=== PATIENT | female | born 2000 | race Caucasian/White ===

== ENCOUNTER → 2020-10-06 | Outpatient (CLI) | payer OTHER ==
--- NOTE | 2020-10-06 15:56 | REP ---
INDICATION: LEFT BREAST/PEA SIZE MASS/12 WKS PREG. Patient reports a palpable lump felt by her a provider. She is sometimes able to feel the lump. COMPARISON: None. TECHNIQUE: Targeted left breast sonography, 2 o'clock position, 4 cm from the nipple. FINDINGS: In the left breast at 2 o'clock, there is a 7 x 6 x 5 mm hypoechoic lesion with internal Doppler flow. Lesion is taller than wide on some images and is not a simple cyst. It has triangular shape in somewhat angular margins. No other sonographic abnormality is seen. IMPRESSION: BI-RADS category 4 suspicious lesion 2 o'clock position left breast. Recommend ultrasound-guided needle biopsy be performed, not to be delayed because of the patient's . A HydroMARK clip can be placed at the time of the ultrasound-guided breast biopsy. This patient's estimated Tyrer-Cuzick lifetime risk assessment for breast cancer is 12.3%. <Electronically signed by Terrence Srivastava > 10/06/20 [id number]
== END ==
LOC: M WHC 13:09
PROVIDERS: ATTEND Advanced Practice Midwife
DX: N63.21 Unspecified lump in the left breast, upper outer quadrant (principal); Z3A.12 12 weeks gestation of pregnancy

== ENCOUNTER → 2020-11-05 | Outpatient (CLI) | payer OTHER ==
[~2020-11-05] MED LIST: PRENTAB9 PO
[2020-11-05 13:51] VITALS: BP 112/66
--- NOTE | 2020-11-05 16:56 | REP ---
INDICATION: LEFT BREAST US GUIDED BX/HYDROMARK CLIP PLACEMENT. COMPARISON: None. TECHNIQUE: The procedure was performed under the direct supervision of Dr. Suarez. The patient has a history of a 7 x 6 x 5 mm hypoechoic lesion in the 2 o'clock position of the left breast seen on a previous ultrasound 10/06/2020. The risks and benefits of the procedure were explained to the patient and informed consent was obtained. The left breast nodule was localized using ultrasound guidance. The skin was prepped and draped in a sterile fashion. 8 mL of 1% Xylocaine was used as a local anesthetic. Using ultrasound guidance a 14-gauge coaxial needle biopsy system was inserted and6 core biopsy samples were obtained. A marker clip (HydroMARK shape 3) was placed at the biopsy site The patient tolerated the procedure well and there were no immediate complications. After the appropriate amount of monitored convalescence, the patient was discharged from the department. EBL: Less than 1 FINDINGS: None IMPRESSION: Ultrasound-guided left breast biopsy with marker clip placement (HydroMARK shape 3) <Electronically signed by Rojas Dubois > 11/05/20 1607 <Electronically signed by Dennys Suarez > 11/05/20 [id number]
== END ==
LOC: M WHCPRO 07:31
PROVIDERS: ATTEND Advanced Practice Midwife
DX: Z34.82 Encounter for supervision of other normal pregnancy, second trimester (principal); Z3A.16 16 weeks gestation of pregnancy; D24.2 Benign neoplasm of left breast

== ENCOUNTER 2021-04-09 12:46 | Inpatient (IN) | payer OTHER ==
[~2021-04-09] VITALS: Ht 160 cm; Wt 66.9 kg
[2021-04-09] VITALS (9 sets, daily range): BP systolic 127–150; BP diastolic 66–89
[2021-04-09] MEDS ORDERED: HOME MED LIST COMPLETE! XX SCH (13:35)
[2021-04-09 14:25] LABS: HEMATOCRIT 36.2 % (36.0-47.0); HEMOGLOBIN 12.3 g/dl (12.0-15.5); MEAN CORPUSCULAR HEMOGLOBIN 30.1 pg (27.0-33.0); MEAN CORPUSCULAR VOLUME 88.7 fl (80.0-96.0); PLATELET COUNT, AUTOMATED 236 10^3/uL (150-450); RED BLOOD COUNT 4.08 10^6/uL (4.00-5.40); WHITE BLOOD COUNT 12.3 10^3/uL (4.0-10.0)
[2021-04-09] MEDS ORDERED: miSOPROStol 50MCG 1/2 TABLET PO ONE ×2 (15:35→20:05)
[2021-04-09] MEDS ORDERED: OXYTOCIN DRIP 30 UNITS in IV 1 EA IV PRN ×4 (15:35)
[2021-04-09] MEDS ORDERED: METHYLERGONOVINE MALEATE 0.2 MG/ML VIAL (J2210) IM PRN (15:35)
[2021-04-09] MEDS ORDERED: LACTATED RINGER'S 1000 ML IV ONE (15:35)
[2021-04-09] MEDS ORDERED: OXYTOCIN INJ 10 UNITS/ML VIAL (J2590) IV PRN (15:35)
[2021-04-09] MEDS ORDERED: OXYTOCIN DRIP 30 UNITS in IV 1 EA IV SCH (23:20)
[2021-04-10] VITALS (53 sets, daily range): BP systolic 102–145; BP diastolic 50–87
[2021-04-10] MEDS: LR 1,000 ML IV SCH ×5 (01:25→23:35)
[2021-04-10] MEDS ORDERED: FENTANYL 2MCG/ML ROPIVACAINE 0.2% IN 0.9% NACL 100ML IVBAG As Ordered ONE (05:51)
[2021-04-10] MEDS ORDERED: EPIDURAL COMMENT XX SCH (06:55)
[2021-04-10] MEDS ORDERED: NALOXONE INJ 0.4MG/1ML VIAL (J2310 PER 1MG) IV PRN (06:55)
[2021-04-10] MEDS ORDERED: REFRIGERATOR IV KEYS XX PRN (06:55)
[2021-04-10] MEDS ORDERED: diphenhydrAMINE 50MG/ML VIAL (J1200) IV PRN (06:55)
[2021-04-10] MEDS ORDERED: ONDANSETRON 4MG/2ML VIAL IV PRN (06:55)
[2021-04-10] MEDS ORDERED: ePHEDrine SULFATE 25 MG/5 ML(5MG/ML) SYRINGE IV PRN (06:55)
[2021-04-10] MEDS ORDERED: LACTATED RINGER'S 1000 ML IV PRN (06:55)
[2021-04-10] MEDS ORDERED: EPIDURAL/PCA KEYS XX PRN (06:55)
[2021-04-10] MEDS: FENTANYL/ROPIVACAINE/NACL BAG 100 ML EPIDURAL SCH ×2 (07:09→16:55)
[2021-04-10 19:39] LABS: CORD GAS ABE A -6.5; CORD GAS HCO3 A 18.9 MEQ/L; CORD GAS O2 SAT A 83.9 %; CORD GAS PCO2 A 37.2 mmHg; CORD GAS PH A 7.323 UNITS; CORD GAS PO2 A 39.7 mmHg; CORD GAS SBC A 18.9 MEQ/L
[2021-04-10 19:44] LABS: CORD GAS ABE V -4.7; CORD GAS O2 SAT V 57.4 %; CORD GAS PCO2 V 41.1 mmHg; CORD GAS PH V 7.326 UNITS; CORD GAS PO2 V 24.2 mmHg; CORD GAS SBC V 19.8 MEQ/L; CORD GAS TCO2 V 22.3 MEQ/L
[2021-04-10] MEDS ORDERED: MEASLES,MUMPS,RUBELLA VACCINE INJ (MMR-II) (90707) SC SCH (20:05)
[2021-04-10] MEDS ORDERED: ACETAMINOPHEN TAB 650MG DOSE (2X325MG) PO PRN (20:05)
[2021-04-10] MEDS ORDERED: DIBUCAINE 1% OINTMENT 30GM TOP PRN (20:05)
[2021-04-10] MEDS ORDERED: DOCUSATE SODIUM 100MG CAPSULE PO PRN (20:05)
[2021-04-10] MEDS ORDERED: METHYLERGONOVINE MALEATE 0.2 MG TAB PO PRN (20:05)
[2021-04-10] MEDS: IBUPROFEN 800 MG TAB PO PRN (21:58)
[2021-04-11 06:00] VITALS: BP 130/74
[2021-04-11] MEDS: IBUPROFEN 800 MG TAB PO PRN (06:05)
[2021-04-11] MEDS: PRENATAL VITAMINS CHEWABLE TABLET PO SCH (08:34)
[2021-04-11 17:57] VITALS: BP 136/79
[2021-04-12] MEDS: IBUPROFEN 800 MG TAB PO PRN (00:54)
[2021-04-12 05:15] VITALS: BP 129/78
[2021-04-12] MEDS ORDERED: COLA100C5 PO (08:33)
[2021-04-12] MEDS ORDERED: IBUP80TA PO (08:33)
[2021-04-12] MEDS ORDERED: PRENCHW PO (08:33)
[2021-04-12] MEDS: PRENATAL VITAMINS CHEWABLE TABLET PO SCH (09:11)
== END 2021-04-12 13:35 | disposition home or self-care (01) | DRG 807 ==
LOC: M LDI 12:46 → M OBS 04-10 21:40
PROVIDERS: ADMIT Obstetrics & Gynecology; ATTEND Registered Nurse
PROC: 3E033VJ Introduction of Other Hormone into Peripheral Vein, Percutaneous Approach (ICD-10-PCS; 2021-04-09)
PROC: 10E0XZZ Delivery of Products of Conception, External Approach (ICD-10-PCS; principal; 2021-04-10)
PROC: 0KQM0ZZ Repair Perineum Muscle, Open Approach (ICD-10-PCS; 2021-04-10)
DX: O48.0 Post-term pregnancy (principal); Z37.0 Single live birth; Z3A.41 41 weeks gestation of pregnancy; O66.0 Obstructed labor due to shoulder dystocia; O70.1 Second degree perineal laceration during delivery